=== PATIENT | female | born 2000 | race Caucasian/White ===

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

== ENCOUNTER 2018-10-06 14:35 | Emergency (ER) | payer OTHER ==
--- NOTE | 2018-10-06 14:49 | PDOC ---
Rapid Medical Evaluation Time Seen by Provider: 10/06/18 14:43 Medical Evaluation: Allergies Allergy/AdvReac Type Severity Reaction Status Date / Time No Known Allergies Allergy Verified 06/01/17 00:33 10/06/18 14:44 I have performed a brief in-person evaluation of this patient. The patient presents with a chief complaint of: left foot and ankle pain starting friday with re-injury today Pertinent physical exam findings: tenderness to medial and lateral malleolus, navicular, metatarsals x5 I have ordered the following: x-rays The patient will proceed to the ED for further evaluation. 10/06/18 14:48 Discharge Disposition - Diagnosis Ankle pain, left - Referrals - Patient Instructions - Post Discharge Activity
[2018-10-06 14:59] VITALS: BP 111/45; PULSE 81; TEMP 98.2; BMI 22.6
[2018-10-06] MEDS ORDERED: ACETAMINOPHEN 500 MG TABLET (FP) PO ONE (15:14)
[2018-10-06] MEDS ORDERED: ACETAMINOPHEN 500 MG TABLET (FP) ONE (15:19)
--- NOTE | 2018-10-06 15:33 | PDOC ---
History of Present Illness - General Chief Complaint: Injury Stated Complaint: LF ANKLE INJURY Time Seen by Provider: 10/06/18 14:43 - History of Present Illness Initial Comments: 10/06/18 15:28 18-year-old female describes an inversion type injury while walking 3 days ago. She points to the lateral aspect of the left foot. She was seen at an urgent care she was told she had a fifth metatarsal fracture was given a boot however she refused a boot and again today she describes another inversion type injury while walking. Past History - Past Medical History Allergies/Adverse Reactions: Allergies Allergy/AdvReac Type Severity Reaction Status Date / Time No Known Allergies Allergy Verified 06/01/17 00:33 Home Medications: Ambulatory Orders Ibuprofen 400 mg PO ASDIR 10/06/18 COPD: No - Suicide/Smoking/Psychosocial Hx Smoking History: Never smoked Have you smoked in the past 12 months: No Information on smoking cessation initiated: No Hx Alcohol Use: No Drug/Substance Use Hx: No Review of Systems - Review of Systems Musculoskeletal: Yes: See HPI *Physical Exam - Vital Signs Last Vital Signs Temp Pulse Resp BP Pulse Ox 98.2 F 81 20 111/45 L 99 10/06/18 14:48 10/06/18 14:48 10/06/18 14:48 10/06/18 14:48 10/06/18 14:48 - Physical Exam Comments: 10/06/18 15:29 Left foot is swollen mildly ecchymotic at the base of the fifth metatarsal area. There is no tenderness about the knee proximal fibula or along its distal coarse. No tenderness about the medial lateral malleolus or navicular. No tenderness about the ATFL. Exquisite tenderness at the base of the fifth metatarsal without gross sensorimotor deficits. She is neurovascularly intact. ED Treatment Course - Medications Given in the ED: ED Medications Discontinued Medications Generic Name Dose Route Start Last Admin Trade Name Freq PRN Reason Stop Dose Admin Acetaminophen 1,000 mg 10/06/18 15:14 10/06/18 15:25 Tylenol - PO 10/06/18 15:15 1,000 mg ONCE ONE Administration Medical Decision Making - Medical Decision Making 10/06/18 15:31 There is a nondisplaced fracture at the base the fifth metatarsal. Crutches Omalley wrap postop shoe she may weight-bear as tolerated her follow-up with orthopedic surgery. *DC/Admit/Observation/Transfer Diagnosis at time of Disposition: Fracture of 5th metatarsal Diagnosis at time of Disposition: (Ruled Out): Ankle pain, left - Discharge Dispostion Disposition: HOME Condition at time of disposition: Stable Decision to Admit order: No - Referrals Referrals: Renato Grant DO [Staff Physician] - - Patient Instructions Printed Discharge Instructions: Foot Fracture, DI for Foot Fracture Additional Instructions: He may weight-bear as tolerated with the use of crutches and the Omalley wrap and postop shoe. Return to the emergency room should symptoms worsen. Please follow- up with orthopedic surgery in 1-2 days for further evaluation and treatment options. Avoid anti-inflammatories and use Tylenol for pain control. Discontinue smoking as this will delay bone healing. - Post Discharge Activity Forms/Work/School Notes: Back to Work, Back to School
== END 2018-10-06 15:47 | disposition home or self-care (01) ==
LOC: JER 14:35 → JERFT 14:35
PROC: 2W3RX1Z Immobilization of Left Lower Leg using Splint (ICD-10-PCS; principal; 2018-10-06)
DX: S62.347D Nondisplaced fracture of base of fifth metacarpal bone, left hand, subsequent encounter for fracture with routine healing (principal); X50.1XXD Overexertion from prolonged static or awkward postures, subsequent encounter
CPT/HCPCS: 73610-TC-LT-FY; 73630-TC-LT; 99281-25